=== PATIENT | female | born 1970 | race Two or more races ===

== ENCOUNTER 2019-09-12 09:30 | Emergency (ER) | payer MEDICARE, MEDICAID ==
[~2019-09-12] VITALS: Ht 162.6 cm; Wt 59.0 kg
--- NOTE | 2019-09-12 09:33 | NUR ---
ED Nurse Note: PT FROM HOME AND BROUGHT IN BY AMBULANCE DUE TO ABD PAIN WITH N/V X 2 DAYS. DENIES DIARRHEA. PT IS MOANING IN PAIN BUT NO ACTIVE VOMITING UPON ARRIVAL. AAO X4, AMBULATORY WITH NON LABORED BREATHING.
[2019-09-12 09:35] VITALS: BP 139/90
--- NOTE | 2019-09-12 09:48 | NUR ---
ED Nurse Note: COLLECTE DBLOOD THEN SENT. PT UNABLE TO PROVIDE URINE SAMPLE AT THIS TIME.
[2019-09-12 10:04] LABS: HEMATOCRIT 44.7 % (37.0-47.0); HEMOGLOBIN 14.9 G/DL (12.0-16.0); MEAN CORPUSCULAR VOLUME 85 FL (80-99); PLATELET COUNT 509 K/UL (150-450); RED BLOOD COUNT 5.23 M/UL (4.20-5.40); RED CELL DISTRIBUTION WIDTH 12.7 % (11.6-14.8); WHITE BLOOD COUNT 9.1 K/UL (4.8-10.8)
[2019-09-12 10:05] LABS: ANION GAP 17 mmol/L (5-15); BLOOD UREA NITROGEN 18 mg/dL (7-18); CALCIUM 10.1 MG/DL (8.5-10.1); CARBON DIOXIDE 26 MMOL/L (21-32); CHLORIDE 100 MMOL/L (98-107); CREATININE 1.3 MG/DL (0.55-1.30); POTASSIUM 3.4 MMOL/L (3.5-5.1); SODIUM 143 MMOL/L (136-145)
[2019-09-12 10:12] LABS: ALANINE AMINOTRANSFERASE 16 U/L (12-78); ALBUMIN 4.3 G/DL (3.4-5.0); ALKALINE PHOSPHATASE 127 U/L (46-116); ASPARTATE AMINO TRANSFERASE 14 U/L (15-37); BILIRUBIN,TOTAL 0.4 MG/DL (0.2-1.0)
--- NOTE | 2019-09-12 10:25 | NUR ---
ED Nurse Note: COLLECTED URINE THEN SENT.
[2019-09-12 10:37] LABS: APPEARANCE,URINE CLEAR; BILIRUBIN, URINE NEGATIVE (NEGATIVE); COLOR,URINE PALE YELLOW; GLUCOSE, URINE (UA) NEGATIVE (NEGATIVE); KETONES,URINE 4+ (NEGATIVE); LEUKOCYTE ESTERASE ,URINE 1+ (NEGATIVE); NITRITE,URINE NEGATIVE (NEGATIVE); PH,URINE 9 (4.5-8.0); PROTEIN,URINE 2+ (NEGATIVE); UROBILINOGEN,URINE NORMAL MG/DL (0.0-1.0)
--- NOTE | 2019-09-12 10:37 | Emergency Room Report ---
History of Present Illness General Chief Complaint: Abdominal Pain Source: EMS Present Illness HPI 49-year-old female with no known past medical history presents to emergency room with 2 days of vomiting. Patient reports she is been vomiting every 3 minutes and unable to control. Patient symptoms worsened at 3 AM last night which is why she came to emergency room. Patient has tried light liquids taking small sips with no improvement. Patient reports cramping abdominal pain diffusely all over her abdomen. She denies any recent travel. She denies diarrhea. Allergies: Coded Allergies: No Known Allergies (Unverified , 09/12/19) Nursing Documentation-[facility] Past Medical History: No Stated History Review of Systems Constitutional: Denies: chills, fever Respiratory: Denies: cough, shortness of breath Cardiovascular: Denies: chest pain, palpitations Gastrointestinal: Reports: abdominal pain, nausea, vomiting; Denies: diarrhea Genitourinary: Denies: hematuria, pain Musculoskeletal: Denies: joint swelling Skin: Denies: rash, lesions Neurological: Denies: headache, dizziness Physical Exam Vital Signs Date Time Temp Pulse Resp B/P (MAP) Pulse Ox O2 Delivery O2 Flow Rate FiO2 09/12/19 09:23 97.7 88 19 136/76 (96) 98 Room Air Sp02 EP Interpretation: reviewed General Appearance: well appearing, no apparent distress, non-toxic, moderate distress Head: normocephalic, atraumatic Eyes: bilateral eye normal inspection ENT: hearing grossly normal, EOM grossly intact, moist mucus membranes Neck: supple Respiratory: lungs clear, normal breath sounds, no respiratory distress, speaking full sentences Cardiovascular #1: regular rate, rhythm, normal capillary refill Cardiovascular #2: 2+ radial (R), 2+ radial (L) Gastrointestinal: soft, no mass, no organomegaly, no peritonitis, non-distended , no guarding, no hernia, no rebound, tenderness - Diffuse tenderness Rectal: deferred Genitourinary: normal inspection, no CVA tenderness Musculoskeletal: moves extm spontaneously, no lower extremity edema Neurologic: alert, grossly normal Psychiatric: mood/affect normal Skin: warm/dry, normal turgor Medical Decision Making Diagnostic Impression: Primary Impression: Abdominal pain Additional Impressions: Acute gastritis Hepatic cyst ER Course 49-year-old female presenting with diffuse abdominal pain and vomiting for 2 days duration worsening last night. Patient unable to tolerate p.o. Exam shows diffuse abdominal tenderness. No rebound no guarding Vitals within normal limits afebrile normotensive. Laboratory Tests Test 09/12/19 09:00 09/12/19 10:25 White Blood Count 9.1 K/UL (4.8-10.8) Red Blood Count 5.23 M/UL (4.20-5.40) Hemoglobin 14.9 G/DL (12.0-16.0) Hematocrit 44.7 % (37.0-47.0) Mean Corpuscular Volume 85 FL (80-99) Mean Corpuscular Hemoglobin 28.4 PG (27.0-31.0) Mean Corpuscular Hemoglobin Concent 33.3 G/DL (32.0-36.0) Red Cell Distribution Width 12.7 % (11.6-14.8) Platelet Count 509 K/UL (150-450) H Mean Platelet Volume 5.1 FL (6.5-10.1) L Neutrophils (%) (Auto) % (45.0-75.0) Lymphocytes (%) (Auto) % (20.0-45.0) Monocytes (%) (Auto) % (1.0-10.0) Eosinophils (%) (Auto) % (0.0-3.0) Basophils (%) (Auto) % (0.0-2.0) Neutrophils % (Manual) Pending Lymphocytes % (Manual) Pending Platelet Estimate Pending Platelet Morphology Pending Sodium Level 143 MMOL/L (136-145) Potassium Level 3.4 MMOL/L (3.5-5.1) L Chloride Level 100 MMOL/L (98-107) Carbon Dioxide Level 26 MMOL/L (21-32) Anion Gap 17 mmol/L (5-15) H Blood Urea Nitrogen 18 mg/dL (7-18) Creatinine 1.3 MG/DL (0.55-1.30) Estimate Glomerular Filtration Rate 43.2 mL/min (>60) Glucose Level 159 MG/DL (74-106) H Calcium Level 10.1 MG/DL (8.5-10.1) Total Bilirubin 0.4 MG/DL (0.2-1.0) Aspartate Amino Transferase (AST) 14 U/L (15-37) L Alanine Aminotransferase (ALT) 16 U/L (12-78) Alkaline Phosphatase 127 U/L (46-116) H Total Protein 8.4 G/DL (6.4-8.2) H Albumin 4.3 G/DL (3.4-5.0) Globulin 4.1 g/dL Albumin/Globulin Ratio 1.0 (1.0-2.7) Lipase 263 U/L (73-393) Urine Color Pending Urine Appearance Pending Urine pH Pending Urine Specific [place] Pending Urine Protein Pending Urine Glucose (UA) Pending Urine Ketones Pending Urine Blood Pending Urine Nitrite Pending Urine Bilirubin Pending Urine Urobilinogen Pending Urine Leukocyte Esterase Pending Lab Results Impression CBC within normal limits other than mild increase in platelets CMP shows mild hypokalemia elevated anion gap of 17, elevated alk phos 127 CT/MRI/US Diagnostic Results CT/MRI/US Diagnostic Results : Impression Preliminary Findings Only See Final Report For Complete Findings CT ABDOMEN & PELVIS With Contrast: Moderate hiatal hernia. Bilateral breast implants partially visualized. Small hepatic cyst. Hemangioma or transient hepatic attenuation difference in the inferior right liver. Excreting contrast in the renal collecting systems. No hydronephrosis. Mild scarring in the right kidney. Normal appendix. Diverticulosis without evidence of diverticulitis. Decompressed portions of the colon. No bowel obstruction. Fibroid uterus. Small bone islands in the pelvic bones. Radiologist: Joseph Hutchison M.D. Reevaluation Time: 14:54 Last Vital Signs Date Time Temp Pulse Resp B/P (MAP) Pulse Ox O2 Delivery O2 Flow Rate FiO2 09/12/19 09:35 97.7 87 15 139/90 100 Room Air Status: improved Reevaluation Impression Patient's pain much improved. Patient lab testing reviewed. Patient CT scan reviewed. Noted to be within normal limits other than hepatic cysts. Patient discharged to follow-up with primary care doctor prescribed PPI. Patient recommend to return to emergency room for new or worsening symptoms. Patient advised to adhere to a low acid diet Disposition: HOME, SELF-CARE Condition: Stable Scripts Pantoprazole* (PROTONIX*) 40 Mg Tablet. 40 MG ORAL EVERY 12 HOURS for 14 Days, #28 TAB Prov: Dewey Rivera M.D. 09/12/19 Referrals: NOT CHOSEN IPA/,REFERRING (PCP) Patient Instructions: Abdominal Pain, Adult, Gastritis, Adult Additional Instructions: Follow-up with your primary care doctor in 1 week for reevaluation. Please take medications as prescribed. Please take copy of your CAT scan result to the primary care doctor as you were noted to have hepatic cyst. Please follow- up in a timely fashion as recommended and obtain any reevaluation that you may need. Dewey Rivera M.D. Sep 12, 2019 10:37
[2019-09-12 11:35] VITALS: BP 129/88
--- NOTE | 2019-09-12 11:35 | NUR ---
ED Nurse Note: PT IS ASKING FOR MORE IV FLUIDS AND MEDICATION FOR NAUSEA. DR MONTERO WAS NOTIFIED.
[2019-09-12] MEDS ORDERED: Morphine Sulfate 2mg/ml Inj(IV/IM USE ONLY) IVP ONE ×2 (12:30→14:15)
--- NOTE | 2019-09-12 12:36 | NUR ---
ED Nurse Note: Patient refused morphine 2mg. Explained risk and benefits, verbally understood. MD notified.
--- NOTE | 2019-09-12 12:37 | NUR ---
ED Nurse Note: Witness waste for morphine done.
[2019-09-12 13:30] VITALS: BP 145/78
[2019-09-12] MEDS ORDERED: Omnipaque-300 100ml vial INJ PRN (13:30)
--- NOTE | 2019-09-12 13:32 | NUR ---
ED Nurse Note: PT TAKEN TO CT VIA NAZARIO IN STABLE CONDITION.
--- NOTE | 2019-09-12 13:32 | NUR ---
Stephania landry in EDM - 09/12/19 at 1332 by BAO ED Note: PT TAKEN TO CT VIA WHEELCHAIR IN STABLE CONDITION.
[2019-09-12] MEDS ORDERED: PREDNISONE20 MG ORAL (13:49)
[2019-09-12] MEDS ORDERED: BENADRYL25 MG ORAL (13:49)
--- NOTE | 2019-09-12 13:50 | NUR ---
ED Nurse Note: PT CAME BACK FROM CT IN STABLE CONDITION.
--- NOTE | 2019-09-12 14:16 | Diagnostic Imaging Report ---
INDICATION: Abdominal pain TECHNIQUE: Continuous helical transaxial imaging of the abdomen and pelvis was obtained from the lung bases to the pubic symphysis during intravenous contrast administration. Coronal 2-D reformats were also obtained. Study obtained in a Siemens sensation [address] Automatic Exposure Control was utilized. Total Dose length Product (DLP): 828.[address] Dose Index Volume (CTDIvol): 14.7 mGy COMPARISON: None FINDINGS: Lungs: The visualized lung bases are clear. There is a moderate size hiatal hernia. Liver: There is a well-circumscribed 1.1 x 0.6 cm cyst within the anterior segment of the right lobe of the liver. There is a area of hyperenhancement along the inferior part of the right lobe of the liver near the gallbladder. This is possibly a vascular malformation or atypical hemangioma. Suggest further evaluation with the correlation ultrasound and/or triphasic CT. Gallbladder/biliary system: No gallstones are identified. There is no evidence of intrahepatic or extrahepatic biliary ductal dilatation. Spleen: Normal Pancreas: Normal Kidneys: There is a small focus of scarring volume loss and anterior part of the right kidney midpole.. No hydronephrosis identified. Adrenal glands: Normal Bowel: There are diverticula within the sigmoid colon. No definite evidence of diverticulitis identified. Bladder: Normal Peritoneum: There is no free fluid. Appendix: Normal. There is a cystic-appearing structure anterior to the uterus. This could be part of the right ovary or possibly a fibroid has a measurement of about 3.2 x 2.6 cm. Aorta: There is some calcification of aorta consistent with atherosclerotic disease. Bones: Normal IMPRESSION: No acute findings Multiple incidental findings as above. [facility] has communicated the preliminary results to the Emergency Department. Their findings are largely concordant with this report. The CT scanner at [facility] is accredited by the [employer] and the scans are performed using dose optimization techniques as appropriate to a performed exam including Automatic Exposure control.
[2019-09-12] MEDS ORDERED: PROTONIX40 MG ORAL (14:53)
[2019-09-12] MEDS ORDERED: Labetalol 5mg/ml 20ml vial IV ONE (15:00)
[2019-09-12 15:03] VITALS: BP 146/82
--- NOTE | 2019-09-12 15:03 | NUR ---
ER DISCHARGE NOTE: Patient is cleared to be discharged per ERMD, pt is aox4, on room air, with stable vital signs. pt was given dc and prescription instructions, pt was able to verbalize understanding, pt id band and iv site removed without complications. pt is able to ambulate with steady gait. pt took all belongings.
--- NOTE | 2019-09-13 15:27 | Diagnostic Imaging Report ---
Indication: Abdominal pain Technique: Grayscale and duplex Doppler imaging of the abdomen performed. Comparison: None Findings: The liver is unremarkable. There are small liver cysts. Doppler interrogation of the main portal vein shows patency with hepatopedal, monophasic flow. There is no biliary ductal dilatation identified. Gallbladder is unremarkable. CBD is 4 mm. There demonstrated part of the pancreas, aorta and IVC show no definite abnormalities. Both kidneys appear unremarkable. There is no hydronephrosis. IMPRESSION: No acute findings. Small liver cysts
== END 2019-09-12 15:03 | disposition home or self-care (01) ==
LOC: EDBD 09:30 → EMR 10:29
DX: R10.9 Unspecified abdominal pain (principal); K29.70 Gastritis, unspecified, without bleeding; K76.89 Other specified diseases of liver; E87.6 Hypokalemia; K44.9 Diaphragmatic hernia without obstruction or gangrene; D25.9 Leiomyoma of uterus, unspecified; K57.90 Diverticulosis of intestine, part unspecified, without perforation or abscess without bleeding
CPT/HCPCS: 36415; 74177; 76700; 80053; 81003; 83690; 85007; 85025; 96361; 96374; 96375; 96376; 99285; J2270; J2405; J7030; Q9967; S0028

== ENCOUNTER 2019-10-20 14:16 | Outpatient (CLI) | payer MEDICARE ==
[~2019-10-20 14:16] MED LIST: BENADRYL25 MG ORAL; PREDNISONE20 MG ORAL; PROTONIX40 MG ORAL
--- NOTE | 2019-10-20 14:45 | General Progress Note ---
Assessment/Plan Assessment/Plan: 1. History of depression. 2. GERD. 3. Hiatal hernia. 4. Gastritis. s/p EGD HP neg gastritis + amphetamine patient to bring her colonoscopy report RTC 3 months ppi Subjective ROS Limited/Unobtainable: Yes Allergies: Coded Allergies: SULFA (SULFONAMIDE ANTIBIOTICS) (Verified Allergy, Intermediate, 10/14/19) SWOLLEN LIPS Objective General Appearance: alert EENT: normal ENT inspection Neck: supple Cardiovascular: normal rate Respiratory/Chest: lungs clear Abdomen: normal bowel sounds, non tender, soft Extremities: non-tender Oumar Riley MD Oct 20, 2019 14:45
[2019-10-20] MEDS ORDERED: BACLOFEN10 MG ORAL (15:17)
[2019-10-20 15:20] VITALS: BP 100/74
== END 2019-10-20 16:16 | disposition home or self-care (01) ==
LOC: PAN 14:16
DX: K21.9 Gastro-esophageal reflux disease without esophagitis (principal); K44.9 Diaphragmatic hernia without obstruction or gangrene; K29.70 Gastritis, unspecified, without bleeding; F32.9 Major depressive disorder, single episode, unspecified; Z88.2 Allergy status to sulfonamides
CPT/HCPCS: 99212

== ENCOUNTER 2020-02-09 12:46 | Outpatient (CLI) | payer MEDICARE ==
[~2020-02-09 12:46] MED LIST changes: +BACLOFEN10 MG ORAL
--- NOTE | 2020-02-09 13:14 | General Progress Note ---
Assessment/Plan Assessment/Plan: Assessment/Plan Assessment/Plan: 1. History of depression. 2. GERD. 3. Hiatal hernia. 4. Gastritis. s/p EGD HP neg gastritis + amphetamine patient to bring her colonoscopy report dexilant and baclofen RTC 3 months Subjective ROS Limited/Unobtainable: No Allergies: Coded Allergies: SULFA (SULFONAMIDE ANTIBIOTICS) (Verified Allergy, Intermediate, 10/14/19) SWOLLEN LIPS Objective General Appearance: no apparent distress EENT: normal ENT inspection Neck: supple Cardiovascular: normal rate Respiratory/Chest: decreased breath sounds Abdomen: normal bowel sounds, non tender, soft Extremities: non-tender Oumar Riley MD February 09, 2020 13:14
== END 2020-02-09 14:47 | disposition home or self-care (01) ==
LOC: PAN 12:46
DX: K21.9 Gastro-esophageal reflux disease without esophagitis (principal); K29.70 Gastritis, unspecified, without bleeding; K44.9 Diaphragmatic hernia without obstruction or gangrene; F32.9 Major depressive disorder, single episode, unspecified; Z88.2 Allergy status to sulfonamides
CPT/HCPCS: 99212